=== PATIENT | male | born 1950 | race Two or more races ===

== ENCOUNTER 2018-02-19 07:17 | Day surgery (SDC) | payer MEDICARE, OTHER ==
[2018-02-19 07:47] VITALS: BMI 25.8
[2018-02-19] MEDS ORDERED: Propofol 10 mg/ml Inj (20 ML) ONE ×2 (08:57→09:14)
[2018-02-19] MEDS ORDERED: Lidocaine Hydrochloride 5 ML INJ ONE (09:01)
[2018-02-19] MEDS ORDERED: ePHEDrine 50 mg/ml Inj ONE (09:25)
[2018-02-19 09:53] VITALS: TEMP 97; O2SAT 100
[2018-02-19 10:22] VITALS: BP 118/79; PULSE 72; RESP 20
== END 2018-02-19 10:20 | disposition home or self-care (01) ==
LOC: C.ENDO 07:17
PROVIDERS: ATTEND Internal Medicine Gastroenterology
DX: Z12.11 Encounter for screening for malignant neoplasm of colon (principal); K64.8 Other hemorrhoids
CPT/HCPCS: 45378; 82948; J2704

== ENCOUNTER 2018-05-21 08:08 | Day surgery (SDC) | payer MEDICARE, OTHER ==
[2018-05-21 08:46] VITALS: TEMP 99.3
[2018-05-21] MEDS ORDERED: Lactated Ringer's 1,000 ML IV ONE (10:00)
[2018-05-21] MEDS ORDERED: Propofol 10 mg/ml Inj (20 ML) ONE (10:08)
[2018-05-21 10:52] VITALS: O2SAT 100
[2018-05-21 12:34] VITALS: BP 121/67; PULSE 66; RESP 13
== END 2018-05-21 11:45 | disposition home or self-care (01) ==
LOC: C.ENDO 08:08
PROVIDERS: ATTEND Internal Medicine Gastroenterology
DX: K21.9 Gastro-esophageal reflux disease without esophagitis (principal); K29.50 Unspecified chronic gastritis without bleeding
CPT/HCPCS: 43239; 82948; 88305; J2001; J2704; J7120